=== PATIENT | female | born 1950 | race Caucasian/White ===

== ENCOUNTER 2018-02-23 15:30 | Outpatient (RCR) | payer OTHER | END 2018-02-27 | disposition home or self-care (01) | LOC: PTY 15:30 | DX: M25.552 Pain in left hip (principal); M70.62 Trochanteric bursitis, left hip ==

== ENCOUNTER 2018-03-02 08:10 | Outpatient (RCR) | payer OTHER | END 2018-03-29 | disposition home or self-care (01) | LOC: PTY 08:10 | DX: M25.552 Pain in left hip (principal); M70.62 Trochanteric bursitis, left hip ==

== ENCOUNTER 2018-03-30 09:28 | Outpatient (RCR) | payer OTHER | END 2018-04-29 | disposition home or self-care (01) | LOC: PTY 09:28 | DX: M25.552 Pain in left hip (principal); M70.62 Trochanteric bursitis, left hip ==

== ENCOUNTER 2018-05-04 09:24 | Outpatient (RCR) | payer OTHER | END 2018-05-29 | disposition home or self-care (01) | LOC: PTY 09:24 | DX: M25.552 Pain in left hip (principal); M70.62 Trochanteric bursitis, left hip ==